=== PATIENT | female | born 1995 | race Caucasian/White ===

== ENCOUNTER 2017-07-22 12:11 | Emergency (ER) | payer BC, OTHER ==
[~2017-07-22] VITALS: Ht 175.3 cm; Wt 75.0 kg
[~2017-07-22 12:11] MED LIST: FERR325T51 PO
[2017-07-22 12:15] VITALS: Ht 175.3 cm; Wt 75.0 kg
--- NOTE | 2017-07-22 12:39 | EMERGENCY ROOM VISIT NOTE ---
History Report prepared by Raymundo: Teo Candelario Under the Supervision of: Dr. Jean-Paul Gupta M.D. First contact with patient: 12:29 Chief Complaint: IRREGULAR HEARTBEAT Stated Complaint: IRREGULAR HEART PALPITATIONS AND PAIN REF BY DR Lozano Triage Summary: pt c/o 3 days of her heart beating irregularily and painful no SOB states that the feeling is constant for 3 days History of Present Illness The patient is a 22 year old female who presents to the Emergency Room with complaints of intermittent spells of irregular heart rates beginning 3 days ago. The patient reports that she was sitting in her house this morning when her heart rate jumped from 50bpm to 150bpm as per her apple watch. She also notes that she subjectively felt her heart racing as well. The patient notes that the episodes do not cause her pain, but rather discomfort. She states that nothing alleviates or worsens the discomfort when her heart is racing. The patient denies fainting or loosing consciousness during the episodes, but states that she felt as if she was going to. The patient denies any recent stress or anxiety, any recent long trips, or any possibility of . The patient notes that she was prescribed oral control for ovarian cysts, but stopped taking the medication two weeks ago as she felt that she was experiencing uncomfortably side effects. The patient states that she was congested this morning, but denies any productive/bloody cough. She denies any other medical problems, taking any other medications, smoking, any recent surgery, or any trauma. Source of History: patient Onset: 3 days ago. Position: other (Global (heart)) Quality: other (racing) Timing: intermittent Modifying Factors (Worsening): other (none) Modifying Factors (Relieving): other (none) Associated Symptoms: No LOC, No cough (no blood in cough or productive cough ) Note: Associated Symptoms: General discomfort during episodes Denies: Stress or anxiety, chance of , recent long trips. Review of Systems See HPI for pertinent positives and negatives. A total of ten systems were reviewed and were otherwise negative. Past Medical & Surgical Medical Problems: (1) Head injury Family History Patient reports no known family medical history. Social History Smoking Status: Never Smoker Marital Status: single Occupation Status: student Current/Historical Medications Scheduled Ferrous Sulfate (Iron Supplement), 1 TAB PO QAM Allergies Coded Allergies: No Known Allergies (Unverified , 4/8/18) Physical Exam Vital Signs Date Time Temp Pulse Resp B/P (MAP) Pulse Ox O2 Delivery O2 Flow Rate FiO2 07/22/17 16:11 36.7 65 18 106/70 98 07/22/17 14:15 60 18 106/70 97 Room Air 07/22/17 12:31 83 07/22/17 12:15 36.7 80 16 114/67 99 Room Air Physical Exam Physical Exam GENERAL: She is oriented to person, place, and time. She appears well- developed and well-nourished. She does not appear distressed. ____ HENT: Exam performed. Head: Normocephalic and atraumatic. Right Ear: External ear normal. No mastoid tenderness. Left Ear: External ear normal. No mastoid tenderness. Mouth/Throat: The oropharynx is clear and moist. No trismus in the jaw. No dental abscesses or uvula swelling. No oropharyngeal exudate or tonsillar abscesses. ____ EYES: Conjunctivae and EOM are normal. Pupils are equal, round, and reactive to light. Right eye exhibits no discharge. Left eye exhibits no discharge. No scleral icterus. ____ NECK: Normal range of motion. Neck supple. No JVD present. No spinous process tenderness present. No carotid bruit present. No rigidity. No tracheal deviation and normal range of motion present. No Brudzinski's sign and no Kernig 's sign noted. ____ CV: Normal rate, regular rhythm, normal heart sounds and intact distal pulses. There is no peripheral edema. Palpable radial pulses bue. ____ PULM/CHEST: Effort normal and breath sounds normal. No respiratory distress. No stridor. She has no wheezes. She has no rales. Chest Wall: She exhibits no tenderness. ____ ABD: The abdomen is soft. Bowel sounds are normal. She has no distension. No mass is present. There is no tenderness. There is no rebound, no guarding, no Mueller's sign and no tenderness at McBurney's point. Rovsig negative MUSC/SKEL: Normal range of motion. There is no peripheral edema, tenderness or deformity. LYMPH: No cervical adenopathy. ____ NEURO: She is alert and oriented to person, place, and time. She has normal strength. No cranial nerve deficit or sensory deficit. Coordination and gait normal. GCS eye subscore is 4. GCS verbal subscore is 5. GCS motor subscore is 6. Cerebellar tests wnl. ____ SKIN: Skin is warm and dry. She is not diaphoretic. ____ PSYCH: She has a normal mood and affect. Her behavior is normal. Judgment and thought content normal. ____ Medical Decision & Procedures ER Provider Diagnostic Interpretation: Radiology results as stated below per my review and radiologist interpretation: [~ rep ct add3]] CHEST 2 VIEWS ROUTINE CLINICAL HISTORY: palpitations COMPARISON STUDY: No previous studies for comparison. FINDINGS: The cardiac and mediastinal contours are normal. There is no evidence of focal pulmonary consolidation. There is no evidence of failure. No pleural effusions are visualized.[ IMPRESSION: No active disease in the chest. Electronically signed by: Werner Perez M.D. 07/22/2017 1:00 PM Dictated Date/Time: 07/22/2017 1:00 PM Laboratory Results 07/22/17 12:25 Red Blood Count 4.69, Mean Corpuscular Volume 86.8, Mean Corpuscular Hemoglobin 29.6, Mean Corpuscular Hemoglobin Concent 34.2, Mean Platelet Volume 11.9, Neutrophils (%) (Auto) 68.0, Lymphocytes (%) (Auto) 22.7, Monocytes (%) (Auto) 7.2, Eosinophils (%) (Auto) 1.4, Basophils (%) (Auto) 0.5, Neutrophils # (Auto) 3.87, Lymphocytes # (Auto) 1.29, Monocytes # (Auto) 0.41, Eosinophils # (Auto) 0.08, Basophils # (Auto) 0.03 07/22/17 12:25 Test 07/22/17 12:25 07/22/17 13:00 White Blood Count 5.69 K/uL (4.8-10.8) Red Blood Count 4.69 M/uL (4.2-5.4) Hemoglobin 13.9 g/dL (12.0-16.0) Hematocrit 40.7 % (37-47) Mean Corpuscular Volume 86.8 fL (80-100) Mean Corpuscular Hemoglobin 29.6 pg (25-34) Mean Corpuscular Hemoglobin Concent 34.2 g/dl (32-36) Platelet Count 238 K/uL (130-400) Mean Platelet Volume 11.9 fL (7.4-10.4) Neutrophils (%) (Auto) 68.0 % Lymphocytes (%) (Auto) 22.7 % Monocytes (%) (Auto) 7.2 % Eosinophils (%) (Auto) 1.4 % Basophils (%) (Auto) 0.5 % Neutrophils # (Auto) 3.87 K/uL (1.4-6.5) Lymphocytes # (Auto) 1.29 K/uL (1.2-3.4) Monocytes # (Auto) 0.41 K/uL (0.11-0.59) Eosinophils # (Auto) 0.08 K/uL (0-0.5) Basophils # (Auto) 0.03 K/uL (0-0.2) RDW Standard Deviation 43.1 fL (36.4-46.3) RDW Coefficient of Variation 13.6 % (11.5-14.5) Immature Granulocyte % (Auto) 0.2 % Immature Granulocyte # (Auto) 0.01 K/uL (0.00-0.02) D-Dimer < 190 ug/L FEU (0-500) Anion Gap 4.0 mmol/L (3-11) Est Creatinine Clear Calc Drug Dose 107.3 ml/min Estimated GFR () 111.1 Estimated GFR (Non- 95.9 BUN/Creatinine Ratio 12.5 (10-20) Calcium Level 9.1 mg/dl (8.5-10.1) Magnesium Level 2.0 mg/dl (1.8-2.4) Urine Color YELLOW Urine Appearance CLEAR (CLEAR) Urine pH 8.5 (4.5-7.5) Urine Specific [place] 1.018 (1.000-1.030) Urine Protein NEG (NEG) Urine Glucose (UA) NEG (NEG) Urine Ketones NEG (NEG) Urine Occult Blood NEG (NEG) Urine Nitrite NEG (NEG) Urine Bilirubin NEG (NEG) Urine Urobilinogen NEG (NEG) Urine Leukocyte Esterase NEG (NEG) Urine Test NEG (NEG) Laboratory results reviewed by me ECG Per My Interpretation Indication: palpitations Rate (beats per minute): 60 Rhythm: other (Sinus Arrythmia ) Findings: other (No ST elevation or depression. qt, qrs, and qtc intervals within normal limits. ) ED Course 1230: The patient was evaluated in room C02. A complete history and physical exam was performed. 1400: Vital signs stable. Patient remained in sinus rhythm with a normal heart rate while on the surveillance system monitor throughout her emergency department stay. Labs EKG and imaging within normal limits including negative d-dimer. Patient will follow up with PCP. Advised to not undergo too much stress, limited exercise activity, and avoid caffeine and other stimulants. DISCHARGE - Plan of care discussed with patient and questions answered. The patient was given both verbal and printed discharge instructions. The patient verbalized understanding and ability to comply. The patient is to seek outpatient follow up as noted in the discharge instructions. The patient verbalized understanding and ability to comply. The patient is discharged in stable condition. The patient was instructed to return for worsening symptoms.. Medical Decision Vital signs stable. Patient remained in sinus rhythm with a normal heart rate while on the surveillance system monitor throughout her emergency department stay. Labs EKG and imaging within normal limits including negative d-dimer. Patient will follow up with PCP. Advised to not undergo too much stress, limited exercise activity, and avoid caffeine and other stimulants. DISCHARGE - Plan of care discussed with patient and questions answered. The patient was given both verbal and printed discharge instructions. The patient verbalized understanding and ability to comply. The patient is to seek outpatient follow up as noted in the discharge instructions. The patient verbalized understanding and ability to comply. The patient is discharged in stable condition. The patient was instructed to return for worsening symptoms.. Medication Reconcilliation Current Medication List: was personally reviewed by me Blood Pressure Screening Patient's blood pressure: Normal blood pressure Impression Primary Impression: Palpitations Scribe Attestation The scribe's documentation has been prepared under my direction and personally reviewed by me in its entirety. I confirm that the note above accurately reflects all work, treatment, procedures, and medical decision making performed by me. The chart was completed utilizing [employer] voice recognition software. Grammatical errors, random word insertions, pronoun errors, and incomplete sentences are an occasional consequence of this system due to software limitations, ambient noise, and hardware issues. Any formal questions or concerns about the content, text, or information contained within the body of this dictation should be directly addressed to the physician for clarification. Departure Information Dispostion Home / Self-Care Referrals Yury Kirby D.O. (PCP) Forms HOME CARE DOCUMENTATION FORM, IMPORTANT VISIT INFORMATION Patient Instructions My [facility] Additional Instructions Return to the emergency department if you develop fever greater than 100.4, lose consciousness, shortness of breath, chest pain, worsening of her symptoms. Avoid strenuous exercise until you are seen by her PCP. Avoid excessive caffeine or stimulant intake.
[2017-07-22 12:46] LABS: BASO % 0.5 %; BASO ABS # 0.03 K/uL (0-0.2); EOS % 1.4 %; EOS ABS # 0.08 K/uL (0-0.5); HEMATOCRIT 40.7 % (37-47); HEMOGLOBIN 13.9 g/dL (12.0-16.0); IG# 0.01 K/uL (0.00-0.02); LYMPH % 22.7 %; LYMPH ABS # 1.29 K/uL (1.2-3.4); MEAN CELL VOLUME 86.8 fL (80-100); MEAN CORPUSCULAR HEMOGLOBIN 29.6 pg (25-34); MEAN CORPUSCULAR HGB CONC 34.2 g/dl (32-36); MEAN PLATELET VOLUME 11.9 fL (7.4-10.4); MONO % 7.2 %; MONO ABS # 0.41 K/uL (0.11-0.59); NEUT ABS # 3.87 K/uL (1.4-6.5); PLATELET COUNT 238 K/uL (130-400); RED CELL DISTRIBUTION WIDTH CV 13.6 % (11.5-14.5); RED CELL DISTRIBUTION WIDTH SD 43.1 fL (36.4-46.3); WHITE BLOOD COUNT 5.69 K/uL (4.8-10.8)
[2017-07-22 13:01] LABS: CALCIUM 9.1 mg/dl (8.5-10.1); CREATININE 0.86 mg/dl (0.60-1.20)
--- NOTE | 2017-07-22 13:02 | DIAGNOSTIC IMAGING REPORT ---
CHEST 2 VIEWS ROUTINE CLINICAL HISTORY: palpitations COMPARISON STUDY: No previous studies for comparison. FINDINGS: The cardiac and mediastinal contours are normal. There is no evidence of focal pulmonary consolidation. There is no evidence of failure. No pleural effusions are visualized.[ IMPRESSION: No active disease in the chest. Electronically signed by: Werner Perez M.D. 07/22/2017 1:00 PM Dictated Date/Time: 07/22/2017 1:00 PM
[2017-07-22 16:11] VITALS: BP 106/70; PULSE 65; TEMP 36.7; O2SAT 98
== END 2017-07-22 16:10 | disposition home or self-care (01) ==
LOC: C.EDB 12:14 → C.EDC 16:10
DX: R00.2 Palpitations (principal)